=== PATIENT | male | born 1955 | race Caucasian/White ===

== ENCOUNTER → 2020-09-03 | Outpatient (CLI) | payer MEDICARE, OTHER ==
[~2020-09-03] MED LIST: ASPIRIN EC81 MG PO; BUSPAR 5MG TABLE5 MG PO; CARDURA8 MG PO; CLEOCIN HCL300 MG PO; COLCRYS0.6 MG PO; COUMADIN1 MG PO; COUMADIN3 MG PO; DESYREL 50 MG T50 MG PO; DIGOXIN 125 MCG PO; DOLOPHINE HCL10 MG PO; FLEXERIL 10 MG10 MG PO; IRON PO; LEVAQUIN500 MG PO; OMEPRAZOLE40 MG PO; PROTONIX40 MG PO; PROZAC20 MG PO; SINGULAIR10 MG PO; SYNTHROID25 MCG PO; THERAGRAN M TAB1 EA PO; TOPROL XL25 MG PO; ULTRAM50 MG PO; VITAMIN D35000 UNI1 PO; WARFARIN SODIUM3 MG PO; ZESTRIL2.5 MG PO; ZYLOPRIM 300 M300 MG PO
== END ==
LOC: HEART 5 08:18
DX: I20.9 Angina pectoris, unspecified (principal); I25.10 Atherosclerotic heart disease of native coronary artery without angina pectoris
CPT/HCPCS: 78452; 93306; A9502; J2785

== ENCOUNTER → 2020-10-04 | Outpatient (CLI) | payer MEDICARE, OTHER ==
[2020-10-04 10:05] LABS: HEMOGLOBIN 12.9 gm/dl (14.0-17.5); RED BLOOD COUNT 4.16 M/UL (4.20-5.50); WHITE BLOOD COUNT 6.4 K/UL (4.5-11.0)
== END ==
LOC: LAB 09:03
PROVIDERS: Internal Medicine Cardiovascular Disease
DX: I42.9 Cardiomyopathy, unspecified (principal); R00.2 Palpitations; I50.22 Chronic systolic (congestive) heart failure; I48.0 Paroxysmal atrial fibrillation; I25.5 Ischemic cardiomyopathy; I95.9 Hypotension, unspecified; J98.4 Other disorders of lung
CPT/HCPCS: 36415; 71046; 80048; 85025; 85610

== ENCOUNTER 2021-06-02 06:46 | Inpatient (IN) | payer MEDICARE, OTHER ==
[~2021-06-02] VITALS: Ht 180.3 cm; Wt 93.2 kg
[~2021-06-02 06:46] MED LIST changes: -ZESTRIL2.5 MG PO; -ZYLOPRIM 300 M300 MG PO
[2021-06-02] MEDS ORDERED: ZESTRIL2.5 MG PO (07:30)
[2021-06-02] MEDS ORDERED: ZYLOPRIM 300 M300 MG PO (07:32)
[2021-06-02 07:55] LABS: HEMOGLOBIN 12.5 gm/dl (14.0-17.5); RED BLOOD COUNT 4.07 M/UL (4.20-5.50); WHITE BLOOD COUNT 9.6 K/UL (4.5-11.0)
[2021-06-02 08:18] LABS: BUN/CREATININE RATIO 10 (0-10)
[2021-06-02] MEDS ORDERED: METOPROLOL TART25 MG PO (11:09)
[2021-06-02] MEDS ORDERED: LOPRESSOR 25 MG25 MG PO (11:30)
[2021-06-02] MEDS ORDERED: ATORVASTATIN CA20 MG PO (11:32)
[2021-06-02] MEDS ORDERED: DONEPEZIL HCL5 MG PO (11:34)
[2021-06-02] MEDS ORDERED: VENLAFAXINE H37.5 M1 PO (11:37)
[2021-06-02] MEDS ORDERED: DOXAZOSIN MESYLA8 MG PO (11:38)
[2021-06-03 01:50] LABS: HEMOGLOBIN 12.8 gm/dl (14.0-17.5); RED BLOOD COUNT 4.23 M/UL (4.20-5.50)
[2021-06-03 02:25] LABS: BUN/CREATININE RATIO 13 (0-10)
[2021-06-04 03:32] LABS: HEMOGLOBIN 12.2 gm/dl (14.0-17.5); RED BLOOD COUNT 3.99 M/UL (4.20-5.50)
[2021-06-04 03:41] LABS: WHITE BLOOD COUNT 21.3 K/UL (4.5-11.0)
[2021-06-04 03:45] LABS: BUN/CREATININE RATIO 21 (0-10)
[2021-06-04] MEDS ORDERED: AMIODARONE HCL200 MG PO (09:51)
[2021-06-04] MEDS ORDERED: WARFARIN SODIUM3 MG PO (09:51)
[2021-06-04] MEDS ORDERED: MEDROL4 MG PO (09:51)
== END 2021-06-04 10:29 | disposition home or self-care (01) | DRG 308 ==
LOC: ER1 06:46 → CDU 09:09 → PROG CARE 14:31
PROVIDERS: Emergency Medicine; ADMIT Internal Medicine
PROC: B24BZZZ Ultrasonography of Heart with Aorta (ICD-10-PCS; principal; 2021-06-02)
DX: I47.1 Supraventricular tachycardia (principal); J18.9 Pneumonia, unspecified organism; I50.22 Chronic systolic (congestive) heart failure; I48.20 Chronic atrial fibrillation, unspecified; Z20.822 Contact with and (suspected) exposure to COVID-19; I25.10 Atherosclerotic heart disease of native coronary artery without angina pectoris; M10.9 Gout, unspecified; E11.9 Type 2 diabetes mellitus without complications; E78.5 Hyperlipidemia, unspecified; I11.0 Hypertensive heart disease with heart failure; I25.5 Ischemic cardiomyopathy; E78.00 Pure hypercholesterolemia, unspecified; F01.50 Vascular dementia, unspecified severity, without behavioral disturbance, psychotic disturbance, mood disturbance, and anxiety; N40.0 Benign prostatic hyperplasia without lower urinary tract symptoms; D63.1 Anemia in chronic kidney disease; E03.9 Hypothyroidism, unspecified; G47.33 Obstructive sleep apnea (adult) (pediatric); E83.42 Hypomagnesemia; I49.3 Ventricular premature depolarization; I08.1 Rheumatic disorders of both mitral and tricuspid valves; I27.20 Pulmonary hypertension, unspecified; I48.0 Paroxysmal atrial fibrillation; F32.A Depression, unspecified; M19.90 Unspecified osteoarthritis, unspecified site; Z79.01 Long term (current) use of anticoagulants; Z95.810 Presence of automatic (implantable) cardiac defibrillator; M25.531 Pain in right wrist; Z95.2 Presence of prosthetic heart valve; Z98.890 Other specified postprocedural states; Z82.49 Family history of ischemic heart disease and other diseases of the circulatory system; Z95.5 Presence of coronary angioplasty implant and graft; Z88.0 Allergy status to penicillin; Z88.2 Allergy status to sulfonamides; Z88.8 Allergy status to other drugs, medicaments and biological substances; Z88.1 Allergy status to other antibiotic agents; Z91.040 Latex allergy status; Z79.82 Long term (current) use of aspirin
CPT/HCPCS: ECHO; 36415; 36600; 71045; 73110; 80048; 80053; 80162; 82550; 82553; 82803; 82962; 83735; 83880; 84439; 84443; 84484; 84550; 85025; 85027; 85610; 85652; 85730; 86140; 87040; 93005; 93306; 94640; 94760; 96374; 96375; 96376; 99284; J0696; J2270; J2405; J2930; J3475; U0002

== ENCOUNTER → 2021-11-25 | Outpatient (CLI) | payer MEDICARE, OTHER ==
[~2021-11-25] MED LIST changes: +AMIODARONE HCL200 MG PO; +ATORVASTATIN CA20 MG PO; +DONEPEZIL HCL5 MG PO; +DOXAZOSIN MESYLA8 MG PO; +LOPRESSOR 25 MG25 MG PO; +MEDROL4 MG PO; +METOPROLOL TART25 MG PO; +VENLAFAXINE H37.5 M1 PO; +ZESTRIL2.5 MG PO; +ZYLOPRIM 300 M300 MG PO
== END ==
LOC: HEART 5 10:21
DX: R06.02 Shortness of breath (principal); Z79.899 Other long term (current) drug therapy
CPT/HCPCS: 94010; 94729

== ENCOUNTER → 2021-11-28 | Outpatient (CLI) | payer MEDICARE, OTHER ==
[2021-11-28 08:40] LABS: HEMOGLOBIN 12.9 gm/dl (14.0-17.5); RED BLOOD COUNT 4.15 M/UL (4.20-5.50); WHITE BLOOD COUNT 6.5 K/UL (4.5-11.0)
[2021-11-28 08:57] LABS: BUN/CREATININE RATIO 10 (0-10)
== END | disposition home or self-care (01) ==
LOC: CATH 07:30
PROVIDERS: Internal Medicine Cardiovascular Disease
DX: I48.19 Other persistent atrial fibrillation (principal); I25.5 Ischemic cardiomyopathy; I11.0 Hypertensive heart disease with heart failure; I50.22 Chronic systolic (congestive) heart failure; I25.10 Atherosclerotic heart disease of native coronary artery without angina pectoris; I25.2 Old myocardial infarction; Z95.1 Presence of aortocoronary bypass graft; Z95.5 Presence of coronary angioplasty implant and graft; Z95.810 Presence of automatic (implantable) cardiac defibrillator; Z87.891 Personal history of nicotine dependence; Z79.01 Long term (current) use of anticoagulants; Z79.899 Other long term (current) drug therapy; Z88.0 Allergy status to penicillin; Z88.2 Allergy status to sulfonamides; Z88.8 Allergy status to other drugs, medicaments and biological substances; Z79.82 Long term (current) use of aspirin
CPT/HCPCS: 80048; 85027; 92960; 93005; J1200; J1742; J2250; J2310; J3010